=== PATIENT | female | born 1955 | race Caucasian/White ===

== ENCOUNTER → 2018-03-05 | Outpatient (CLI) | payer OTHER ==
[~2018-03-05] MED LIST: ASMA220A INH; CETI10 PO; CULT10CA4 PO; ESTR0.5T PO; GLUC4CHW CHEW; LISI-515 PO; MELA5 PO; MONT10TA2 PO
[2018-03-05 11:47] LABS: AUTOMATED NEUTROPHIL # 4.9 TH/MM3 (1.8-7.7); BASOPHIL # 0.1 TH/MM3 (0-0.2); BASOPHIL % 1.4 % (0.0-2.0); EOSINOPHIL # 0.1 TH/MM3 (0-0.4); EOSINOPHIL % 2.1 % (0.0-4.0); HEMATOCRIT 39.8 % (35.0-46.0); HEMOGLOBIN 13.1 GM/DL (11.6-15.3); LYMPH % 19.6 % (9.0-44.0); LYMPHOCYTE # 1.4 TH/MM3 (1.0-4.8); MEAN CELL VOLUME 84.8 FL (80.0-100.0); MEAN PLATELET VOLUME 7.9 FL (7.0-11.0); MONO % 7.7 % (0.0-8.0); MONOCYTE # 0.5 TH/MM3 (0-0.9); NEUT % 69.2 % (16.0-70.0); PLATELET COUNT 243 TH/MM3 (150-450); RED CELL DISTRIBUTION WIDTH 14.2 % (11.6-17.2); WHITE BLOOD COUNT 7.1 TH/MM3 (4.0-11.0)
[2018-03-05 12:12] LABS: BICARBONATE 29.2 MEQ/L (21.0-32.0); CREATININE 0.93 MG/DL (0.50-1.00)
[2018-03-05 12:39] LABS: BILIRUBIN, URINE NEG (NEG); BLOOD, URINE NEG (NEG); GLUCOSE,URINE NEG (NEG); KETONE, URINE NEG (NEG); MUCUS URINE FEW /lpf (OCC); NITRITE,URINE NEG (NEG); PH, URINE 5.5 (5.0-8.5); SQUAMOUS EPITHELIAL CELL URINE 2 /hpf (0-5); URINE COLOR YELLOW (YELLW/STRAW); URINE LEUKOCYTE ESTERASE NEG (NEG)
--- NOTE | 2018-03-08 21:01 | EKG ---
Date Performed: 03/05/2018 Time Performed: 11:46:49 PTAGE: 62 years EKG: Sinus rhythm NORMAL ECG NO PREVIOUS TRACING DOCTOR: Kieran Phelps Interpretating Date/Time 03/08/2018 20:59:59
== END ==
LOC: CPRE 10:25
PROVIDERS: ATTEND Obstetrics & Gynecology
DX: Z01.812 Encounter for preprocedural laboratory examination (principal); Z01.810 Encounter for preprocedural cardiovascular examination; N81.11 Cystocele, midline
CPT/HCPCS: 36415; 80048; 81001; 85025; 93005

== ENCOUNTER → 2018-03-10 | Day surgery (SDC) | payer OTHER ==
[~2018-03-10] VITALS: Ht 177.8 cm; Wt 96.4 kg
[~2018-03-10] MED LIST changes: +ACETAMINOPHEN 1000 MG/100 ML 100 ML IV ONE; +ACETAMINOPHEN/HYDROcodone 325 MG/10 MG TAB PO PRN; +ACETAMINOPHEN/HYDROcodone 325 MG/5 MG TAB PO PRN; +APREPITANT 40 MG CAP ONE; +CHLORHEXIDINE GLUCONATE 2 % 1 PACK (2 CLOTHS) TOPICAL PRN; +DEXAMETHASONE SOD PHOS 4 MG/ML VIAL IV ONE; +DO NOT ADM ANY ANTICOAGULANT DRUGS PRN; +ESTROGENS CONJUGATED VAG CREA 15 APPL/30 GM TUBE ONE; +FAMOTIDINE 20 MG/2 ML VIAL ONE; +HYDROmorphone HCL PF 0.5 MG/0.5 ML SYRINGE IV PUSH PRN; +IBUPROFEN 600 MG TAB PO PRN; +KETOROLAC TROMETHAMINE 30 MG/ML (IVP) VIAL IV PUSH ONE; +KETOROLAC TROMETHAMINE 30 MG/ML (IVP) VIAL IVP PRN; +LACTATED RINGER'S 1000 ML INJ 1,000 ML IV ONE; +LACTATED RINGER'S 1000 ML INJ 1,000 ML IV SCH; +LACTATED RINGER'S 1000 ML IV PRN; +LIDOCAINE HCL 1% PF 5 ML SYRINGE OTHER ONE; +LORazepam 0.5 MG TAB PO PRN; +METOPROLOL TARTRATE 25 MG TAB PO PRN; +MIDAZOLAM HCL 2 MG/2 ML VIAL ONE; +MORPHINE SULFATE 4 MG/ML INJ ONE; +ONDANSETRON HCL 4 MG/2 ML VIAL IV ONE; +ONDANSETRON HCL 4 MG/2 ML VIAL IVP PRN; +POVIDONE IODINE 5% (ANTISEPSIS KIT) 4 APPLICATIONS EACH NARE PRN; +PROMETHAZINE INJ 25 MG/ML VIAL ONE; +PROPOFOL 200 MG/20 ML AMP IV ONE; +SODIUM CHLORID 0.9% 500 ML IV PRN; +SODIUM CHLORIDE 0.9% FLUSH 10 ML FLUSH IV FLUSH PRN; +SODIUM CHLORIDE 0.9% FLUSH 10 ML FLUSH IV FLUSH SCH; +ceFAZolin 2 GM/DEX PREMIX 50 ML IV SCH; +diphenhydrAMINE HCL 25 MG CAP PO PRN
--- NOTE | 2018-03-10 10:28 | MP ---
cc: Edwar Valdez MD DATE OF OPERATION: 03/10/2018 DATE OF PROCEDURE: 03/10/2018. PREOPERATIVE DIAGNOSES: The patient with symptomatic cystocele and rectocele, previous history of hysterectomy. PROCEDURE: Exam under anesthesia, anterior colporrhaphy, posterior colporrhaphy, cystourethroscopy. POSTOPERATIVE DIAGNOSES. The patient with symptomatic cystocele and rectocele, previous history of hysterectomy. SURGEON: Edwar Valdez MD ANESTHESIA: General with endotracheal intubation. ESTIMATED BLOOD LOSS: 25 mL DRAINS: Roque to gravity. OPERATIVE FINDINGS: The patient had a grade 2-3 cystocele and a 1-2 stage rectocele. Results of the cystourethroscopy demonstrated intact bladder, no laceration, no suture placement. Both ureters were peristalsing and patent bilaterally. INDICATIONS FOR PROCEDURE: The patient with a previous history of hysterectomy with prolapse, recurrent prolapse with large, symptomatic cystocele. The patient attempt at using pessary was unsuccessful. She requested surgical intervention. Risks, benefits, complications, and failure were discussed. Consent was signed. PROCEDURE: The patient was taken to the operating room in stable condition. She had received Ancef 2 grams as prophylactic antibiotic. She underwent general anesthesia with endotracheal intubation. She had sequentials placed on the lower extremities for VTE prophylaxis. She was prepped and draped. Timeout was conducted, agreed by all present in the room and a Roque catheter was inserted by sterile technique. Exam revealed the known preoperative findings. The anterior repair was initiated first. Allis clamps were then utilized to delineate the defect. 0.25% plain Marcaine was injected as a subcutaneous injection in the vaginal mucosa and a linear incision was made in the midline. The redundant cystocele was then dissected in bilateral fashion, carefully to separate the vaginal mucosa from the defect. This was taken up to the apex of the vaginal vault and then the defect was reduced using a 2-0 Monocryl suture on a UR-6 needle. Several sutures were placed to plicate the defect and then once the sutures were placed, they were pulled tight and sutured with good reapproximation. The reduction was complete. The redundant vaginal mucosa was trimmed and then the edges were closed, closing the defect with a running suture of 3-0 Vicryl. Good result was noted after completion of the anterior repair. The cystourethroscopy was performed with a 7-degree lens. The Roque catheter was removed and the examination of the cavity and bladder was defined above. Completion of the cystourethroscopy was complete. The Roque catheter was reinserted and the posterior repair was then addressed. In a similar fashion, Allis clamps were used to define the defect. 0.25% plain Marcaine was injected through the vaginal mucosa and then a linear incision was made in the midline of the defect. Again, a combination of blunt and sharp dissection was used to dissect the vaginal mucosa away from the defect, so the same plication suture technique was used with 2-0 Monocryl suture on a UR-6 needle and then again reduction of the defect and plication was complete. The redundant vaginal mucosa was trimmed and then the defect was closed with a running locking suture of 3-0 Vicryl. Digital rectal exam at the completion of the rectocele repair was normal. No interruption of the rectum and irrigation of the vaginal vault proved hemostatic. No hematoma. The suture lines were then covered with Premarin cream postoperatively and at the completion of the case, the final count was correct and the patient was taken to the recovery room on room air. Edwar Valdez MD SJLionel/TL , 10:07 AM , 10:27 AM
[2018-03-10 11:45] VITALS: BP 157/80; PULSE 62; RESP 20; TEMP 95.7; O2SAT 96
== END | disposition home or self-care (01) ==
LOC: HSDC 06:00 → EDUNIT# 08:00
PROVIDERS: ATTEND Obstetrics & Gynecology
DX: N81.11 Cystocele, midline (principal); N81.6 Rectocele; I10 Essential (primary) hypertension; Z90.710 Acquired absence of both cervix and uterus
CPT/HCPCS: 00942; 57260; J0131; J0690; J1100; J1885; J2250; J2270; J2405; J2550; J3010; J7120; J8501